=== PATIENT | female | born 1985 | race Caucasian/White ===

== ENCOUNTER 2020-02-27 18:19 | Emergency (ER) | payer MEDICAID, SELFPAY ==
[2020-02-27 18:29] VITALS: BP 174/115; PULSE 108; RESP 16; TEMP 36.7; O2SAT 97; BMI 37.1
--- NOTE | 2020-02-27 22:04 | W.ED.HA ---
HPI - Headache General: Chief Complaint: Headache Stated Complaint: dental pain/headache Time Seen by Provider: 02/27/20 22:04 Source: patient Mode of arrival: ambulatory Limitations: no limitations History of Present Illness: HPI Narrative: Patient comes in with headache for 3 to 4 days. Patient reports it is kind of went to the left side of her face now. Patient reports that she has been using ibuprofen with some relief. Patient appears well. Patient appears in no pain. Review of Systems General: Reports: 10 or more systems reviewed and unremarkable except in HPI and below ENMT: Reports: mouth pain Neuro: Reports: headache(s) [facility] ED Female Reproductive History: Date of last menstrual period: 02/10/20 Physical Exam Const: COMMON NORMALS: no acute distress and patient oriented x3 GENERAL APPEARANCE: cooperative HENMT: COMMON NORMALS: normocephalic, TM's normal bilaterally and Normal external nose present HEAD & SCALP: normal to inspection and normocephalic NOSE: Normal external nose present TYMPANIC MEMBRANE: TM's normal bilaterally MOUTH: other (Patient has erythema and swelling to the left lower rear molar that is decayed to the gumline.) THROAT: posterior oropharynx normal Eye: GENERAL EYE: appearance normal, both eyes and all related structures Neck/C-Spine: COMMON NORMALS: full ROM Lymph: LYMPHATIC: no lymphadenopathy noted Chest: COMMONS NORMALS: normal inspection of the chest Resp: COMMON NORMALS: normal respiratory effort EFFORT & INSPECTION: Yes able to speak in complete sentences Cardio: COMMON NORMALS: regular rate and regular rhythm RATE: regular rate RHYTHM: regular rhythm GI: COMMON NORMALS: non-tender Back/Pelvis: COMMON NORMALS: thoracic and lumbar spine normal to inspection Extremity: COMMON NORMALS: normal to inspection Neuro: COMMON NORMALS: patient oriented x3 and moves all extremities Psych: COMMON NORMALS: mental status grossly normal and cooperative Skin: COMMON NORMALS: no rashes or lesions noted GENERAL SKIN EXAM: no rashes or lesions noted Course Vital Signs: Vital signs: Vital Signs Temperature 98.1 F 02/27/20 18:29 Pulse Rate 108 H 02/27/20 18:29 Respiratory Rate 16 02/27/20 18:29 Blood Pressure 174/115 02/27/20 18:29 Pulse Oximetry 97 02/27/20 18:29 MDM - Headache MDM Narrative: Medical decision making narrative: Patient comes in with persistent headache for 3 days. On exam patient has some mild swelling and tenderness to the left TMJ joint area and left anterior cervical lymph node. Oral exam noted a decayed left lower rear molar with surrounding gingival redness and swelling. Vital signs were normal except for some elevation in blood pressure. No fevers noted. Differential diagnosis includes but not limited to migraine headache, tension headache, sinusitis, dental abscess, dental caries, otitis media. Reviewed exam with patient recommended treatment for a dental abscess. Patient reported understanding and agreed to plan. Patient will continue with Tylenol and ibuprofen otherwise as needed for pain. Discharge Plan Discharge Patient Disposition: Home, Self-Care Clinical Impression: Pain due to dental caries, Abscess, dental Condition: Stable Prescriptions: New amoxicillin 500 mg capsule 1,000 mg PO BID 10 Days Qty: 40 RF: 0 Discharge Orders: Discharge Order (Routine); Ordered 02/27/20 Ordered By: Ellis Chirinos Discharge Diet: Usual diet Discharge Activity: Increase activity as tolerated Patient Instructions: Dental Caries (ED) Activity Restrictions/Additional Instructions: Good oral care. Drink plenty of water with medication. Continue with Tylenol and ibuprofen as needed for pain. Follow-up with dentist for definitive care. Return to the ER for worsening symptoms or new concerns. 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
[2020-02-27] MEDS: amoxicillin 500 mg Capsule 1000 MG PO (23:02)
[2020-02-27 23:05] VITALS: BP 124/74; PULSE 98; RESP 18; TEMP 37.1; O2SAT 98
== END 2020-02-27 23:06 | disposition home or self-care (01) ==
PROVIDERS: Emergency Provider Nurse Practitioner Family
DX: K02.9 Dental caries, unspecified (principal); K04.7 Periapical abscess without sinus
CPT/HCPCS: 12345; 99281; 99282

== ENCOUNTER 2020-03-12 08:12 | Emergency (ER) | payer MEDICAID, SELFPAY ==
[2020-03-12 08:16] VITALS: BP 168/127; PULSE 102; RESP 18; TEMP 36.5; O2SAT 100; BMI 37.1
--- NOTE | 2020-03-12 08:23 | ED_ITS ---
HPI - Ear Problem General: Chief complaint: Ear Stated complaint: r ear pain Time Seen by Provider: 03/12/20 08:16 History of Present Illness: HPI Narrative: Patient complains of right ear pain since yesterday and recently treated for dental infection but that was on the left side versus right. Also has a history hypertension which she is not taking her medication for this morning. MD Complaint: ear pain Location: right ear Duration: constant Severity: mild Relieving factors: nothing Exacerbating factors: nothing Context: other (Dental infection on the other side) Discharge from ear: no Associated symptoms: Reports no associated symptoms and ear or mastoid pain; Denies fever(s) or headache(s) Treatment prior to arrival: none Review of Systems Const: Denies: fever(s), chills or body aches Eyes: Denies: change in vision or blurry vision ENMT: Reports: ear or mastoid pain; Denies: throat pain or nasal congestion Card: Denies: chest pain or dyspnea on exertion Resp: Denies: dyspnea, productive cough or non-productive cough GI: Denies: abdominal pain, nausea or vomiting Musc: Denies: extremity pain Skin/Breast: Denies: rash Neuro: Denies: headache(s) Psych: Denies: anxiety or depression Claude/Lymph: Denies: easy bruising [facility] ED Female Reproductive History: Date of last menstrual period: 02/15/20 Physical Exam Const: COMMON NORMALS: no acute distress, average body habitus and patient oriented x3 HENMT: COMMON NORMALS: normocephalic HEAD & SCALP: normal to inspection and normocephalic FACE & SINUS: normal facial exam TYMPANIC MEMBRANE: TM abnormal TM laterality: right Details: dull, effusion and other (Mild lymphadenopathy anterior cervical right side) Eye: COMMON NORMALS: conjunctivae normal GENERAL EYE: appearance normal, both eyes and all related structures CONJUNCTIVA: Yes conjunctivae normal Neck/C-Spine: COMMON NORMALS: no JVD Chest: COMMONS NORMALS: normal inspection of the chest Resp: COMMON NORMALS: normal respiratory effort and clear to auscultation bilaterally AUSCULTATION: clear to auscultation bilaterally Cardio: COMMON NORMALS: no JVD, regular rate and regular rhythm RATE: regular rate RHYTHM: regular rhythm GI: COMMON NORMALS: Normal to inspection, nondistended, normoactive bowel sounds present Extremity: COMMON NORMALS: normal to inspection and full ROM Neuro: COMMON NORMALS: patient oriented x3 Course Vital Signs: Vital signs: Vital Signs Temperature 97.7 F 03/12/20 08:29 Pulse Rate 102 H 03/12/20 08:29 Respiratory Rate 18 03/12/20 08:29 Blood Pressure 168/100 03/12/20 08:29 Pulse Oximetry 100 03/12/20 08:29 Discharge Plan Discharge Patient Disposition: Home, Self-Care Clinical Impression: Otitis media Qualifiers: Otitis media type: serous Chronicity: acute Laterality: right Recurrence: non- recurrent Qualified Code(s): H65.01 - Acute serous otitis media, right ear HTN (hypertension) Qualifiers: Hypertension type: essential hypertension Qualified Code(s): I10 - Essential (primary) hypertension Condition: Stable Prescriptions: New ciprofloxacin HCl 500 mg tablet 500 mg PO BID Qty: 14 RF: 0 tramadol 50 mg tablet 50 mg PO Q6H PRN (Reason: pain) Qty: 7 RF: 0 Discharge Orders: Discharge Order (Routine); Ordered 03/12/20 Ordered By: Aurelio Beckwith Discharge Diet: Usual diet Discharge Activity: Resume usual activity Patient Instructions: Otitis Media (ED), Hypertension (ED) Activity Restrictions/Additional Instructions: Follow-up with medical provider as directed. Take medications as prescribed. Return to the ER or your medical provider if condition worsens. Please read and understand discharge instructions. If any questions ask please. 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
[2020-03-12 08:29] VITALS: BP 168/100; PULSE 102; RESP 18; TEMP 36.5; O2SAT 100
== END 2020-03-12 08:31 | disposition home or self-care (01) ==
LOC: ER 08:32
PROVIDERS: Emergency Provider Nurse Practitioner Family
DX: H65.01 Acute serous otitis media, right ear (principal); I10 Essential (primary) hypertension
CPT/HCPCS: 12345; 99281; 99282

== ENCOUNTER 2021-02-14 20:00 | Emergency (ER) | payer MEDICAID, SELFPAY ==
[2021-02-14 20:05] VITALS: BP 142/86; PULSE 90; RESP 16; TEMP 36.6; O2SAT 96; BMI 34.7
--- NOTE | 2021-02-14 20:11 | W.ED.DENTAL ---
HPI - Dental/Oral General: Chief complaint: Dental/Oral Stated complaint: oral abcess Time Seen by Provider: 02/14/21 20:10 History of Present Illness: HPI Narrative: Patient is a 35-year-old female comes to the ED with dental pain and gum swelling. Patient says she noticed approximately 2 to 3 days ago she started developing some around tooth #25 and 26. She also noticed that she was having some dental pain at tooth #25 and 26 as well. Patient says she does have a dentist currently and is going to call them tomorrow morning to get an appointment set up. Patient has no other complaints. Associated symptoms: Denies fever(s) or odynophagia Review of Systems Const: Denies: fever(s), chills or fatigue Eyes: Denies: change in vision or eye discomfort ENMT: Reports: dental pain; Denies: throat pain, odynophagia, nasal discharge or nasal congestion Card: Denies: chest pain, palpitations, edema, swelling of feet/ankles, dyspnea on exertion or orthopnea Resp: Denies: dyspnea, productive cough or non-productive cough GI: Denies: abdominal pain, nausea, vomiting, diarrhea, constipation or hematochezia : Denies: flank pain, dysuria or hematuria Musc: Denies: neck pain, back pain or extremity swelling Skin/Breast: Denies: rash or new lesions Neuro: Denies: headache(s), numbness in extremities or weakness in extremities [facility] ED Female Reproductive History: Date of last menstrual period: 02/13/21 Physical Exam Narrative: EXAM NARRATIVE: Patient is a very happy and pleasant 35-year-old female in no acute distress or pain. Const: COMMON NORMALS: no acute distress, patient oriented x3, healthy appearing and alert GENERAL APPEARANCE: cooperative and comfortable HENMT: COMMON NORMALS: normocephalic HEAD & SCALP: normocephalic MOUTH: Normal oral and palatal mucosa present TEETH & GINGIVA: Yes abnormal tooth and associated gingiva lower right central incisor tender (Tenderness to tooth #25 and #26 and gingival tenderness) and with associated gingival edema and Yes fair dentition THROAT: posterior oropharynx normal and uvula midline Neck/C-Spine: COMMON NORMALS: supple GENERAL: Yes normal visual inspection Resp: COMMON NORMALS: normal respiratory effort, No retractions, No use of accessory muscles and clear to auscultation bilaterally AUSCULTATION: clear to auscultation bilaterally Cardio: COMMON NORMALS: regular rate, regular rhythm, S1 normal heart sound present, S2 normal heart sound present, No gallops present (Cardio), No clicks present (Cardio), No murmurs present (Cardio) and Peripheral pulses 2+ throughout RATE: regular rate RHYTHM: regular rhythm HEART SOUNDS: S1 normal heart sound present and S2 normal heart sound present PERIPHERAL PULSES: Peripheral pulses 2+ throughout GI: COMMON NORMALS: Normal to inspection, nondistended, normoactive bowel sounds present, Soft to palpation, non-tender and no masses PALPATION: Yes Soft to palpation : COMMON NORMALS: Yes no CVA tenderness BLADDER/KIDNEY EXAM: Yes no CVA tenderness Back/Pelvis: COMMON NORMALS: no CVA tenderness Extremity: COMMON NORMALS: normal to inspection Neuro: COMMON NORMALS: patient oriented x3 and moves all extremities SENSORIUM/ORIENTATION: Yes alert Skin: GENERAL SKIN EXAM: dry skin Course Vital Signs: Vital signs: Vital Signs Temperature 97.9 F 02/14/21 20:05 Pulse Rate 90 02/14/21 20:05 Respiratory Rate 16 02/14/21 20:27 Blood Pressure 142/86 02/14/21 20:05 Pulse Oximetry 96 02/14/21 20:05 MDM - Dental/Oral MDM Narrative: Medical decision making narrative: Patient is a 35-year-old female comes to the ED with some dental pain and gingival swelling. Patient says she has a dentist and is going to call them tomorrow morning to get an appointment set up. Patient was given a dose of Tylenol while here in the ED and clindamycin. Patient diagnosed with dental pain and swelling of gingiva discharged home with a prescription for clindamycin. Patient was told to get an appointment set up with dentist to be evaluated for dental pain. Return to ED precautions given. Patient understood agree with plan. Discharge Plan Discharge Patient Disposition: Home Clinical Impression: Pain, dental, Swelling of gingiva Condition: Stable Prescriptions: New clindamycin HCl 150 mg capsule 300 mg PO QID 7 Days Qty: 56 RF: 0 No Action ciprofloxacin HCl 500 mg tablet 500 mg PO BID Qty: 14 RF: 0 tramadol 50 mg tablet 50 mg PO Q6H PRN (Reason: pain) Qty: 7 RF: 0 Discharge Orders: Discharge ED (Routine); Ordered 02/14/21 Ordered By: Riaz Renee Discharge Diet: Regular Discharge Activity: Resume usual activity Patient Instructions: Dental Abscess (ED), Toothache (ED) Activity Restrictions/Additional Instructions: Contact your dentist tomorrow morning to get an appointment scheduled to get dental pain evaluated. Take medications as prescribed. You can take [id number] ibuprofen or Tylenol for pain. Return to the ER or your medical provider if condition worsens. Please read and understand discharge instructions. Thank you for choosing [facility] for your healthcare needs today. Please realize this is an emergency room and that we are providing you with a medical screening exam and this may not be complete and all inclusive of all the testing and or work up that you may need to determine your ailment or severity of your illness. It is very important that you follow up as instructed or that you return to the Emergency Department should you have concerns or if your condition changes or worsens in any way. 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
[2021-02-14] MEDS: acetaminophen 500 mg Tablet 1000 MG PO (20:25)
[2021-02-14] MEDS: clindamycin 150 mg Capsule 300 MG PO (20:25)
[2021-02-14 20:27] VITALS: RESP 16
== END 2021-02-14 20:28 | disposition home or self-care (01) ==
PROVIDERS: Emergency Provider Physician Assistant
DX: K08.89 Other specified disorders of teeth and supporting structures (principal); K06.9 Disorder of gingiva and edentulous alveolar ridge, unspecified
CPT/HCPCS: 99283

== ENCOUNTER 2021-03-07 10:24 | Emergency (ER) | payer MEDICAID, SELFPAY ==
[2021-03-07 10:31] VITALS: BP 150/104; PULSE 86; RESP 16; TEMP 37.6; O2SAT 97; BMI 35.5
--- NOTE | 2021-03-07 10:40 | XRR_ITS ---
PROCEDURE INFORMATION: Exam: XR Chest Exam date and time: 03/07/2021 10:40 AM Age: 35 years old Clinical indication: Shortness of breath; Additional info: SOB TECHNIQUE: Imaging protocol: XR of the chest. Views: 1 view. COMPARISON: CR Chest 1 [place] [id number] 06/04/2019 2:19 AM FINDINGS: Lungs: Unremarkable. No consolidation. Pleural spaces: Unremarkable. No pleural effusion. No pneumothorax. Heart/Mediastinum: Unremarkable. No cardiomegaly. Bones/joints: Unremarkable. XR/XR chest 1V portable [id number] IMPRESSION: No acute findings.
[2021-03-07 11:17] LABS: SARS Covid-2 Antigen Positive (Negative)
[2021-03-07 13:16] VITALS: O2SAT 95
--- NOTE | 2021-03-07 13:23 | ED_ITS ---
HPI - COVID General: Chief Complaint: COVID symptoms Stated Complaint: FEVER, BODY ACHES, N/D Time Seen by Provider: 03/07/21 10:32 Source: patient Mode of arrival: ambulatory Limitations: no limitations Triage information: Has fever, cough or shortness of breath . Exposure to COVID + person last 14 days History of Present Illness: MD complaint: reported COVID exposure and has COVID symptoms Prior covid testing: no COVID 19 common symptoms: positive fever(s), cough, dyspnea and headache(s); negative throat pain, nasal congestion, nausea, vomiting or diarrhea COVID 19 other sytmptoms: negative chest pain Treatment prior to arrival: none COVID Results: SARS-CoV-2 Antigen (Rapid) Positive (Negative) H 03/07/21 10:37 03/07/21 Review of Systems Const: Reports: fever(s) Eyes: Denies: change in vision, blurry vision, blind spots, photophobia, eye discomfort, eye discharge, eye redness, floaters or seeing flashes ENMT: Denies: throat pain, uvular edema, enlarged tonsils, odynophagia, hoarseness, mouth pain, swelling of lips/tongue, oral sores, bleeding gums, dental pain, dry mouth, ear or mastoid pain, ear discharge, change in hearing, tinnitus, disequilibrium, nasal discharge, nasal congestion, post nasal drip or sinus pain Card: Denies: chest pain Resp: Reports: dyspnea GI: Denies: abdominal pain, nausea, vomiting, hematemesis, dysphagia, di arrhea, constipation, GI cramping, change in bowel habits or rectal pain : Denies: flank pain, difficulty voiding, dysuria, urinary frequency, urinary urgency, urinary hesitancy or hematuria Musc: Denies: neck pain, back pain, extremity pain, extremity swelling, joint pain, joint swelling, joint redness, joint warmth or deformity Skin/Breast: Denies: rash, pruritus, erythema, sores, new lesions, changes in skin color or dry skin Neuro: Reports: headache(s) Psych: Denies: anxiety, depression, suicidal ideation or homicidal ideation Endo: Denies: polyuria, polydipsia, tired all the time, cold intolerance, excessive sweating, flushing, hot flashes or heat intolerance Claude/Lymph: Denies: easy bruising, easy bleeding, petechiae, purpura, enlarged lymph nodes or tender lymph nodes All/Imm: Denies: urticaria, throat swelling, tongue swelling, facial swelling, acute wheezing or itchy eyes [facility] ED Female Reproductive History: Date of last menstrual period: 02/13/21 Physical Exam Const: COMMON NORMALS: no acute distress, patient oriented x3, healthy appearing, alert and well nourished GENERAL APPEARANCE: cooperative, comfortable, well kempt and well developed; not ill appearing ORIENTATION/CONSCIOUSNESS: Yes awake, Yes oriented to person, Yes oriented to place and Yes oriented to time HENMT: COMMON NORMALS: normocephalic, atraumatic, hearing grossly normal bilaterally, external ears normal, EAC's normal, TM's normal bilaterally, Normal external nose present, Normal nasal mucous membranes and turbinates present and moist oral mucous membranes HEAD & SCALP: normal to inspection, normocephalic and atraumatic FACE & SINUS: normal facial exam, sinuses nontender and face symmetric NOSE: Normal external nose present, Normal nares present, Normal nasal mucous membranes and turbinates present, No nasal discharge present and Abnormal external nose present EXTERNAL EAR: Yes external ears normal and Yes mastoids normal EXTERNAL AUDITORY CANAL: EAC's normal TYMPANIC MEMBRANE: TM's normal bilaterally MOUTH: Normal oral and palatal mucosa present, lip normal, tongue normal and Normal salivary glands and ducts present THROAT: no uvular edema Eye: COMMON NORMALS: Equal, round and reactive pupils present, EOMs intact bilaterally, conjunctivae normal and no scleral icterus GENERAL EYE: appearance normal, both eyes and all related structures EYELID: eyelids normal CONJUNCTIVA: Yes conjunctivae normal SCLERA: sclerae normal CORNEA: Yes corneas normal PUPIL: Yes Equal, round and reactive pupils present Neck/C-Spine: COMMON NORMALS: full ROM, no lymphadenopathy, supple, no meningeal signs, no JVD and Thyroid normal GENERAL: Yes normal visual inspection and Yes trachea midline THYROID: Thyroid normal CERVICAL SPINE: Yes cervical ROM normal Lymph: LYMPHATIC: no lymphadenopathy noted and no lymphedema noted Chest: COMMONS NORMALS: normal inspection of the chest and normal palpation of entire chest wall Resp: COMMON NORMALS: normal respiratory effort, No retractions, No use of accessory muscles and clear to auscultation bilaterally EFFORT & INSPECTION: Yes able to speak in complete sentences and Yes symmetric chest movement AUSCULTATION: clear to auscultation bilaterally Cardio: COMMON NORMALS: no JVD, regular rate and regular rhythm RATE: regular rate RHYTHM: regular rhythm GI: COMMON NORMALS: Normal to inspection, nondistended, normoactive bowel sounds present, Soft to palpation, non-tender, No hepatosplenomegaly present, no masses and no bruits INSPECTION: Yes normal to inspection AUSCULTATION: Yes normoactive bowel sounds PALPATION: Yes Soft to palpation and Yes No hepatosplenomegaly present PERCUSSION: normal to percussion RECTAL EXAM: deferred : COMMON NORMALS: Yes no CVA tenderness, Yes normal external appearance, Yes normal appearance of the vagina, Yes normal appearance of the cervix, Yes normal bimanual exam, Yes No adnexal tenderness and Yes no masses BLADDER/KIDNEY EXAM: Yes no CVA tenderness BIMANUAL EXAM - VAGINA & UTERUS: Yes normal bimanual exam Back/Pelvis: COMMON NORMALS: no CVA tenderness, thoracic and lumbar spine normal to inspection, no thoracic nor lumbar tenderness, thoraco-lumbar ROM normal and straight leg raise negative bilaterally THORACIC SPINE/UPPER BACK: Yes normal to inspection LUMBAR SPINE/LOWER BACK: Yes normal to inspection Extremity: COMMON NORMALS: normal to inspection, full ROM and capillary refill normal GENERAL: Yes normal exam except as noted Neuro: COMMON NORMALS: patient oriented x3, CN's II-XII intact bilaterally, moves all extremities, no focal motor deficits, no sensory deficits noted, deep tendon reflexes 2+ bilaterally and gait normal SENSORIUM/ORIENTATION: Yes alert, Yes oriented to person, Yes oriented to place and Yes oriented to time MENINGEAL SIGNS: Yes no meningeal signs CRANIAL NERVES: Yes CN normal except as noted SPEECH: speech normal GAIT: Yes Normal gait present SENSORY EXAM: Yes extremities MOTOR EXAM: 5/5 motor strength present throughout Psych: COMMON NORMALS: mental status grossly normal, Normal thought process present, cooperative, normal affect, speech normal, activity/motor behavior normal, denies hallucinations, denies homicidal ideation and denies suicidal ideation APPEARANCE: Yes grossly normal and Yes well kempt ATTITUDE: Yes calm ACTIVITY/MOTOR BEHAVIOR: Yes appropriate eye contact SPEECH: Yes normal speech THOUGHT PROCESS: Normal thought process present THOUGHT CONTENT: Yes Normal thought content present ATTENTION/CONCENTRATION: Yes attention grossly intact MEMORY/COGNITION: Yes memory grossly intact INSIGHT: Good insight present (Psych) JUDGEMENT: Good judgement present (Psych) Skin: COMMON NORMALS: no rashes or lesions noted, no wounds, turgor normal, no jaundice, no petechiae and no mottling GENERAL SKIN EXAM: no rashes or lesions noted and turgor normal Course Vital Signs: Vital signs: Vital Signs Temperature 99.7 F H 03/07/21 10:31 Pulse Rate 86 03/07/21 10:31 Respiratory Rate 16 03/07/21 10:31 Blood Pressure 150/104 03/07/21 10:31 Pulse Oximetry 95 03/07/21 13:16 MDM - COVID MDM Narrative: Medical decision making narrative: Pt is well appearing non toxic and in no acute distress. Pt had known Covid exposure and developed symptoms 3-4 days ago. Pt states she has cough and fever and headache. pt denies chest pain, sever SOB, states she SOB with cough. Pt denies any n/v/d. Pt did test positive for COVID. Pt chest xray negative for any acute findings. I discussed home care and return precautions with patient as wellas close follow up Differential Diagnosis: Differential diagnosis: Likely COVID 19, influenza, other viral infection, bacterial infection, pneumonia, copd exacerbation and pulmonary embolism Lab Data: Labs: Lab Results 03/07/21 Range/Units 10:37 SARS-CoV-2 Ag (Rap id) Positive H (Negative) COVID Results: SARS-CoV-2 Antigen (Rapid) Positive (Negative) H 03/07/21 10:37 03/07/21 Discharge Plan Discharge Patient Disposition: Home Clinical Impression: COVID-19 Condition: Stable Prescriptions: No Action ciprofloxacin HCl 500 mg tablet 500 mg PO BID Qty: 14 RF: 0 tramadol 50 mg tablet 50 mg PO Q6H PRN (Reason: pain) Qty: 7 RF: 0 Discharge Orders: Discharge ED (Routine); Ordered 03/07/21 Ordered By: Marina Rocha Discharge Diet: Advance as tolerated Discharge Activity: Increase activity as tolerated Patient Instructions: Opioid Safety Activity Restrictions/Additional Instructions: Please self quarantine for 10 days. 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
== END 2021-03-07 13:23 | disposition home or self-care (01) ==
PROVIDERS: Emergency Provider Registered Nurse
DX: U07.1 COVID-19 (principal)
CPT/HCPCS: 71045; 87426; 99282

== ENCOUNTER 2021-04-27 07:35 | Emergency (ER) | payer MEDICAID, SELFPAY ==
[2021-04-27 07:51] VITALS: BP 160/117; PULSE 89; RESP 16; TEMP 36.8; O2SAT 96; BMI 37.1
--- NOTE | 2021-04-27 08:02 | XRR_ITS ---
PROCEDURE INFORMATION: Exam: XR Chest Exam date and time: 04/27/2021 8:02 AM Age: 36 years old Clinical indication: Cough and dyspnea and shortness of breath; Additional info: Dyspnea/cough x 1 week TECHNIQUE: Imaging protocol: XR of the chest. Views: 1 view. COMPARISON: CR XR chest 1V portable [id number] 03/07/2021 10:55 AM FINDINGS: Lungs: Hyperinflation and mild interstitial prominence. No acute infiltrate. Pleural spaces: No pleural effusion. Heart/Mediastinum: Normal configuration of the heart. Bones/joints: Unremarkable. When correlating with the previous study, no significant interval changes are present. XR/XR chest 1V portable [id number] IMPRESSION: Hyperinflation, without acute airspace or pleural disease.
[2021-04-27 08:04] VITALS: BP 162/101; PULSE 86
--- NOTE | 2021-04-27 08:15 | ED_ITS ---
HPI - URI/Sore Throat General: Chief Complaint: Upper Respiratory Infection Stated Complaint: SOB, COUGH (EXPOSURE TO RSV) Time Seen by Provider: 04/27/21 07:38 History of Present Illness: HPI Narrative: 36-year-old female presents emergency room for cough that began 1 week ago. She does have some low-grade fever. She is concerned she may have a pneumonia. Last month she was diagnosed with Covid she seemed to have recovered from that. She is also concerned that she was exposed to RSV. She not had any vomiting or diarrhea. No dysuria urgency or frequency. MD elicited complaint: fever and cough Pertinent past history: pneumonia and other (Recent Covid 19) Onset (ago): week(s) (1) Consistency: constant Severity: mild Exacerbating factors: exertion Relieving factors: nothing Associated symptoms: Reports congestion and cough; Deny abdominal pain, change in voice, chills, chest pain, diarrhea, epistaxis, ear or mastoid pain, fever(s), headache(s), myalgias, nasal congestion, nausea, rash, rhinorrhea, short of breath, sinus pain, stiffness, sore throat or vomiting Treatments prior to arrival: none Review of Systems Const: Denies: fever(s) or chills ENMT: Denies: ear or mastoid pain, nasal congestion, epistaxis or sinus pain Card: Denies: chest pain Resp: Denies: dyspnea, productive cough or non-productive cough GI: Denies: abdominal pain, nausea, vomiting or diarrhea : Denies: flank pain, difficulty voiding, dysuria, urinary frequency or urinary urgency Skin/Breast: Denies: rash or pruritus Neuro: Denies: headache(s) [facility] ED Female Reproductive History: Date of last menstrual period: 04/10/21 Physical Exam Const: COMMON NORMALS: no acute distress GENERAL APPEARANCE: cooperative and comfortable ORIENTATION/CONSCIOUSNESS: Yes awake, Yes oriented to person, Yes oriented to place and Yes oriented to time HENMT: COMMON NORMALS: normocephalic, atraumatic and hearing grossly normal bilaterally HEAD & SCALP: normocephalic and atraumatic Neck/C-Spine: COMMON NORMALS: no JVD Resp: AUSCULTATION: rhonchi and wheezes Cardio: COMMON NORMALS: no JVD, regular rate, regular rhythm and No murmurs present (Cardio) RATE: regular rate RHYTHM: regular rhythm GI: COMMON NORMALS: Soft to palpation and No hepatosplenomegaly present AUSCULTATION: Yes normoactive bowel sounds PALPATION: Yes Soft to palpation, No Tenderness to palpation present (GI), No Guarding due to palpation present (GI) and Yes No hepatosplenomegaly present Extremity: COMMON NORMALS: normal to inspection, capillary refill normal, no clubbing, cyanosis or edema, no calf tenderness and no pedal edema Neuro: SENSORIUM/ORIENTATION: Yes oriented to person, Yes oriented to place and Yes oriented to time Skin: COMMON NORMALS: no rashes or lesions noted GENERAL SKIN EXAM: no rashes or lesions noted Course Vital Signs: Vital signs: Vital Signs Temperature 98.3 F 04/27/21 07:51 Pulse Rate 79 04/27/21 09:22 Respiratory Rate 17 04/27/21 09:22 Blood Pressure 162/101 04/27/21 08:04 Pulse Oximetry 97 04/27/21 09:22 MDM - URI/Sore Throat MDM Narrative: Medical decision making narrative: Chest x-ray normal. Patient was concerned about RSV unfortunately in an adult this is a send out via a reference lab it will be a few days. Oxygenation is good there is no sign of pneumonia will start on prednisone and albuterol inhaler she did have good results from [facility] here. If worsens return Lab Data: Labs: Lab Results 04/27/21 04/27/21 Range/Units 08:25 08:25 WBC 8.6 (4.0-10.0) 10^3/ uL RBC 4.88 (4.1-5.3) 10^6/u L Hgb 12.8 (11.5-15.3) g/dL Hct 39.1 (37.0-47.0) % MCV 80.1 L (81-99) fl MCH 26.2 L (28.0-34.0) pg MCHC 32.7 (30.0-36.0) g/dL RDW 13.9 (12.1-15.1) % Plt Count 245 (130-400) 10^3/c mm MPV 9.7 (7.4-10.4) fL Neut % (Auto) 68.1 % Lymph % (Auto) 18.9 % [place] % (Auto) 7.4 % Eos % (Auto) 4.1 % Baso % (Auto) 0.7 % Neut # (Auto) 5.84 (1.8-7.7) 10^3/u L Lymph # (Auto) 1.6 (0.8-4.8) 10^3/u L [place] # (Auto) 0.6 (0.2-0.9) 10^3/u L Eos # (Auto) 0.4 (0.0-0.8) 10^3/u L Baso # (Auto) 0.1 (0.0-0.1) 10^3/u L Nucleated RBC % (a uto) 0 % Nucleated RBCs # 0.0 /100WBC Sodium 135 L (136-145) mmol/L Potassium 3.5 (3.5-5.1) mmol/L Chloride 97 L (98-107) mmol/L Carbon Dioxide 28 (22-29) mmol/L Anion Gap 13.5 (5-19) BUN 10 (6-20) mg/dL Creatinine 0.5 (0.5-0.9) mg/dL GFR Calculation 141.2 H (90-130) mL/min Glucose 146 H (65-115) mg/dL Calculated Osmolal ity 282 L (285-295) mOsm/k g Calcium 8.5 (8.5-10.5) mg/dL Total Bilirubin 0.2 (0.15-1.2) mg/dL AST 15 (0-32) U/L ALT 18 (0-33) U/L Alkaline Phosphata se 69 (35-105) IU/L Total Protein 6.7 (6.6-8.7) g/dL Albumin 3.7 (3.5-5.2) g/dL Globulin 3.0 (1.3-4.6) g/dL Discharge Plan Discharge Patient Disposition: Home Clinical Impression: Bronchitis Condition: Stable Prescriptions: New Medrol (Mauro) 4 mg tablets,dose pack See Rx Instructions .ROUTE .COMPLEX Qty: 21 RF: 0 albuterol sulfate 90 mcg/actuation HFA aerosol inhaler 2 inh INHALATION Q4H PRN (Reason: shortness of breath or wheezing) Qty: 18 RF: 0 No Action ciprofloxacin HCl 500 mg tablet 500 mg PO BID Qty: 14 RF: 0 tramadol 50 mg tablet 50 mg PO Q6H PRN (Reason: pain) Qty: 7 RF: 0 Discharge Orders: Discharge ED (Routine); Ordered 04/27/21 Ordered By: Gne Snyder Patient Instructions: Opioid Safety Stand Alone Forms: Work/School Release Coding Level of Care Code ED Operator Vacuum for Mykel Fwd Exam Comprehensive
[2021-04-27 08:36] LABS: Basophils # 0.1 10^3/uL (0.0-0.1); Basophils % 0.7 %; Eosinophils # 0.4 10^3/uL (0.0-0.8); Eosinophils % 4.1 %; Hematocrit 39.1 % (37.0-47.0); Hemoglobin 12.8 g/dL (11.5-15.3); Lymphocytes # 1.6 10^3/uL (0.8-4.8); Lymphocytes % 18.9 %; Mean Corpuscular HGB Conc 32.7 g/dL (30.0-36.0); Mean Corpuscular Hemoglobin 26.2 pg (28.0-34.0); Mean Corpuscular Volume 80.1 fl (81-99); Mean Platelet Volume 9.7 fL (7.4-10.4); Monocytes # 0.6 10^3/uL (0.2-0.9); Monocytes % 7.4 %; Neutrophils # 5.84 10^3/uL (1.8-7.7); Neutrophils % 68.1 %; Nucleated Red Blood Cells % 0 %; Platelet Count 245 10^3/cmm (130-400); Red Blood Count 4.88 10^6/uL (4.1-5.3); Red Cell Distribution Width 13.9 % (12.1-15.1); White Blood Count 8.6 10^3/uL (4.0-10.0)
[2021-04-27 08:49] LABS: Alanine Aminotransferase 18 U/L (0-33); Albumin Level 3.7 g/dL (3.5-5.2); Alkaline Phosphatase 69 IU/L (35-105); Anion Gap 13.5 (5-19); Aspartate Amino Transferase 15 U/L (0-32); Blood Urea Nitrogen 10 mg/dL (6-20); Calcium 8.5 mg/dL (8.5-10.5); Carbon Dioxide 28 mmol/L (22-29); Chloride 97 mmol/L (98-107); Glomerular Filtration Rate 141.2 mL/min (90-130); Glucose 146 mg/dL (65-115); Osmolality Calculated 282 mOsm/kg (285-295); Potassium 3.5 mmol/L (3.5-5.1); Sodium 135 mmol/L (136-145); Total Bilirubin 0.2 mg/dL (0.15-1.2); Total Protein 6.7 g/dL (6.6-8.7)
[2021-04-27 09:22] VITALS: PULSE 79; RESP 17; O2SAT 97
--- NOTE | 2021-04-27 09:23 | PC.RESP ---
RT Shift Note Frequent safety and respiratory rounds continue. Orders completed as indicated. Patient monitored pre and post treatments throughout shift. Patient [Did.] tolerate treatments appropriately. Condition [DidNotChange]. Patient and/or customer loyalty representative educated on respiratory treatment and medications. Patient and/or customer loyalty representative [VERBALIZED UNDERSTANDING]. Will continue to monitor patient progress.
== END 2021-04-27 10:09 | disposition home or self-care (01) ==
PROVIDERS: Emergency Provider Family Medicine
DX: J40 Bronchitis, not specified as acute or chronic (principal); Z86.16 Personal history of COVID-19
CPT/HCPCS: 71045; 80053; 85025; 94640; 96374; 99283; J2930; J7611

== ENCOUNTER 2021-06-21 10:45 | Emergency (ER) | payer MEDICAID, SELFPAY ==
[2021-06-21] VITALS (7 sets, daily range): BP systolic 114–134; BP diastolic 76–91; PULSE 73–100; RESP 14–20; TEMP 36.6–37.2; O2SAT 96–100; BMI 31.9
--- NOTE | 2021-06-21 10:52 | XR_ITS ---
WS: [id number] Exam: XR chest 1V portable [id number] Date/Time of Exam: 06/21/2021 10:52 AM Reason For Exam: chest pain Comparison 04/27/2021. Findings: The lungs are clear and fully expanded. Costophrenic angles are sharp. No infiltrates. Bronchovascula r relief appears normal. Cardiac silhouette is unremarkable. Bony elements are intact. XR/XR chest 1V portable [id number] IMPRESSION: Unremarkable chest radiograph.
--- NOTE | 2021-06-21 11:04 | ECG_ITS ---
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 Measurements Intervals [place] Rate: 78 P: 32 IL: 158 QRS: 55 QRSD: 96 T: 71 QT: 437 QTc: 498 Interpretive Statements SINUS RHYTHM PROLONGED QT INTERVAL Compared to ECG 06/07/2019 23:26:45 Prolonged QT interval now present Sinus tachycardia no longer present Electronically Signed On 06-21-2021 23:45:59 CDT by Isaías Grayson M.D. [email or web address]/[id number] f
[2021-06-21 11:20] LABS: Basophils # 0.1 10^3/uL (0.0-0.1); Basophils % 0.6 %; Eosinophils # 0.2 10^3/uL (0.0-0.8); Eosinophils % 1.6 %; Hematocrit 43.3 % (37.0-47.0); Hemoglobin 14.1 g/dL (11.5-15.3); Lymphocytes # 2.9 10^3/uL (0.8-4.8); Lymphocytes % 21.2 %; Mean Corpuscular HGB Conc 32.6 g/dL (30.0-36.0); Mean Corpuscular Hemoglobin 26.9 pg (28.0-34.0); Mean Corpuscular Volume 82.6 fl (81-99); Mean Platelet Volume 10.1 fL (7.4-10.4); Monocytes # 0.7 10^3/uL (0.2-0.9); Monocytes % 5.1 %; Neutrophils # 9.57 10^3/uL (1.8-7.7); Neutrophils % 71.3 %; Nucleated Red Blood Cells % 0 %; Platelet Count 312 10^3/cmm (130-400); Red Blood Count 5.24 10^6/uL (4.1-5.3); Red Cell Distribution Width 13.8 % (12.1-15.1); White Blood Count 13.4 10^3/uL (4.0-10.0)
[2021-06-21] MEDS: nitroglycerin 0.4 mg sublingual Tablet SUBLINGUAL (11:25)
--- NOTE | 2021-06-21 11:38 | W.ED.GENADLT ---
HPI - General Adult General: Chief complaint: Chest Pain Stated complaint: CHEST DISCOMFORT Time Seen by Provider: 06/21/21 10:50 History of Present Illness: HPI narrative: CC: Chest Pain HPI: This is a [36] yo patient hx of HTN, family hx of cardiac issue, smoking presenting to the ED complaining of acute sudden onset intermittent sharp chest pain since 5am this morning radiating from the back to the front. Chest pain lasts for 5 minutes at a time, currently 4/10 chest pain that started from the back and radiated to the front. Denies pleuritic chest pain. Pain is not tearing in nature and does not radiate to the back. Pain not associated with vomiting or PO intake. Denies any recent sympathomimetic drug use. Patient denies any cough. Denies palpitations, dysphagia, diaphoresis, radiation of pain to bilateral arms, jaw. Denies F/N/V/D. Patient denies any recent immobility, surgery, unilateral leg swelling, or prior PE. Patient denies any orthopnea. Of note, patient tells me she was diagnosed with heart failure back in 2019 has yet to establish care with Dr. Mclaughlin. Onset: 5am this morning Duration: ongoing for the last 6 hrs, intermittent Location: home Severity: mild/moderate Review of Systems Narrative: Constitutional: No fever, no chills. HEENT: No vision changes, no sore throat. CV: +chest pain, no palpitations. PULM: No cough, No dyspnea. GI: No abdominal pain, no N/V/D. : No dysuria, no frequency, no hematuria. MSKEL: No arthralgias, no edema. SKIN: No new rashes, no lesions. NEURO: No headache, no focal weakness. HEME: No easy bleeding or bruising. PSYCH: No change in mood or affect. [facility] ED Female Reproductive History: Date of last menstrual period: 05/19/21 Physical Exam Narrative: EXAM NARRATIVE: Head: Atraumatic, normocephalic Eyes: PERRL, EOMI, conjunctiva without injection ENT: Throat without erythema, lesions or exudate, MMM NECK: Supple, trachea midline, no JVD LUNGS: LCTA CV: RRR, S1,S2, no murmurs, rubs, gallops. 2+ peripheral pulses in UEs ABDOMEN: Soft, nontender, nondistended, BS x4, no rigidity, no guarding, no rebound EXTREMITY: Normal ROM, no pitting edema, no calf tenderness to palpation SKIN: No rash or erythema NEURO: Awake and alert. No focal motor deficits. PSYCH: Normal mood and affect. Course Vital Signs: Vital signs: Vital Signs Temperature 97.9 F 06/21/21 12:22 Pulse Rate 96 06/21/21 15:20 Respiratory Rate 14 06/21/21 15:20 Blood Pressure 121/88 06/21/21 15:20 Pulse Oximetry 99 06/21/21 15:20 MDM - General Adult MDM Narrative: Medical decision making narrative: [36]yo patient w/ hx of smoking and family hx of cardiac isue presenting to the ED with evaluation of new onset sharp chest pain since 5am today HDS, pulse 2+ radially bilaterally, no signs of fluid overload, AAOx3, neuro exam intact. Given History and Exam today I have no suspicion for ACS, Pneumothorax, Pneumonia, Pulmonary Embolus, Tamponade, Aortic Dissection or other emergent problems as a cause for this presentation. Workup: ECG, CXR, CBC, BMP, Troponin x 2 Interventions: Pain control Findings: ECG: No overt evidence of STEMI, hyperacute T waves, localizable STD or T wave inversions. No evidence of Brugada?s sign, delta wave, epsilon wave, significantly prolonged QTc, or malignant arrhythmia. No Q waves. Other Labs unremarkable for emergent problems. CXR: Without PTX, PNA, or widened mediastinum Last Stress Test: never Last Heart Catheterization: never [3:06pm] On reassessment, the patient is HDS, no complaints of persistent chest pain in the ED after evaluation. ECG is non-ischemic. Workup today is unremarkable. Doubt ACS/PE or other emergent causes of chest pain. CT negative for any acute finding. Troponin x2 is negative. Patient would like to see a consumer science teacher for her history of heart failure which she claims she was diagnosed with in 2019. I have given patient follow up with our director of casework services to be seen by our outpatient Jira Administrator for formal echo for evaluation of hx of heart failure. Patient aware of a call from our director of casework services to schedule for appointment(s) and verbalizes understanding of the importance of following up. Rx: Tylenol PRN pain Disposition: Discharge. Strict return precautions discussed with the patient with full understanding. Advised patient to follow up promptly with a primary care provider in 24-48 hrs if the patient has persistent symptoms. Given return instructions for any crushing/tearing chest pain, focal weakness, syncope or any new or concerning issues. Lab Data: Labs: Lab Results 06/21/21 06/21/21 06/21/21 11:10 11:10 11:10 WBC 13.4 10^3/uL H 10 ^3/uL (4.0-10.0) RBC 5.24 10^6/uL 10^6 /uL (4.1-5.3) Hgb 14.1 g/dL g/dL (11.5-15.3) Hct 43.3 % % (37.0-47.0) MCV 82.6 fl fl (81-99) MCH 26.9 pg L pg (28.0-34.0) MCHC 32.6 g/dL g/dL (30.0-36.0) RDW 13.8 % % (12.1-15.1) Plt Count 312 10^3/cmm 10^3 /cmm (130-400) MPV 10.1 fL fL (7.4-10.4) Neut % (Auto) 71.3 % % Lymph % (Auto) 21.2 % % [place] % (Auto) 5.1 % % Eos % (Auto) 1.6 % % Baso % (Auto) 0.6 % % Neut # (Auto) 9.57 10^3/uL H 10 ^3/uL (1.8-7.7) Lymph # (Auto) 2.9 10^3/uL 10^3/ uL (0.8-4.8) [place] # (Auto) 0.7 10^3/uL 10^3/ uL (0.2-0.9) Eos # (Auto) 0.2 10^3/uL 10^3/ uL (0.0-0.8) Baso # (Auto) 0.1 10^3/uL 10^3/ uL (0.0-0.1) Nucleated RBC % (a uto) 0 % % Nucleated RBCs # 0.0 /100WBC /100W BC D-Dimer Sodium 140 mmol/L mmol/L (136-145) Potassium 3.7 mmol/L mmol/L (3.5-5.1) Chloride 101 mmol/L mmol/L (98-107) Carbon Dioxide 26 mmol/L mmol/L (22-29) Anion Gap 16.7 (5-19) BUN 11 mg/dL mg/dL (6-20) Creatinine 0.5 mg/dL mg/dL (0.5-0.9) GFR Calculation 141.2 mL/min H mL /min (90-130) Glucose 84 mg/dL mg/dL (65-115) Calculated Osmolal ity 289 mOsm/kg mOsm/ kg (285-295) Calcium 9.3 mg/dL mg/dL (8.5-10.5) Total Bilirubin 0.2 mg/dL mg/dL (0.15-1.2) AST 14 U/L U/L (0-32) ALT 18 U/L U/L (0-33) Alkaline Phosphata se 71 IU/L IU/L (35-105) Troponin T Gen 5 n g/L Troponin T Baselin e 6 ng/L ng/L (0-10) NT-Pro-B Natriuret Pep 46 pg/mL pg/mL (0-125) Total Protein 7.2 g/dL g/dL (6.6-8.7) Albumin 4.2 g/dL g/dL (3.5-5.2) Globulin 3.0 g/dL g/dL (1.3-4.6) 06/21/21 06/21/21 12:02 14:17 WBC RBC Hgb Hct MCV MCH MCHC RDW Plt Count MPV Neut % (Auto) Lymph % (Auto) [place] % (Auto) Eos % (Auto) Baso % (Auto) Neut # (Auto) Lymph # (Auto) [place] # (Auto) Eos # (Auto) Baso # (Auto) Nucleated RBC % (a uto) Nucleated RBCs # D-Dimer 0.81 ug/mIFEU H u g/mIFEU (0-0.59) Sodium Potassium Chloride Carbon Dioxide Anion Gap BUN Creatinine GFR Calculation Glucose Calculated Osmolal ity Calcium Total Bilirubin AST ALT Alkaline Phosphata se Troponin T Gen 5 n g/L 6 ng/L ng/L (0-10) Troponin T Baselin e NT-Pro-B Natriuret Pep Total Protein Albumin Globulin Imaging Data^: Other Imaging: Radiologist's impression: [address], [place] [address]MU Scan ReportSigned Patient: Charisse Tucker #: [id number]: 1985Acct#:[id number]/Sex: 36 / FADM Date: 06/21/21Loc: ERRoom/Bed:Attending Dr: Ordering Provider/Ordering MD: Jim Collins MD Date of Service: 06/21/21 Procedure(s): CT angio chest PE protcl [id number] Accession Number(s): [id number] Report Number: [id number] WS: [id number] CT CHEST ANGIOGRAPHY WITH REFORMATS HISTORY: rule out pe TECHNIQUE: Contiguous axial images are obtained through the chest during arterial injection of intravenous contrast. Images are reconstructed to evaluate the pulmonary arteries. MIP imaging also reviewed. All CT scans at [facility] use at least one of these dose optimization techniques: automated exposure control; mA and/or kV adjustment per patient size (includes targeted exams where dose is matched to clinical indication); or iterative reconstruction. CONTRAST: Omnipaque 350; 95 mL IV. DLP: 598.85 mGy.cm COMPARISON: None available. Motion artifact through portions of the main pulmonary artery. No large filling defects are evident. Distal to the lobar branches is very good opacification. The variable density within the main pulmonary artery is probably cardiac motion. No filling defect in the LEFT atrial appendage. Normal size heart. Normal aorta. No pericardial or pleural effusions. No pneumonia. Lungs are clear. No adenopathy. Small hiatal hernia. Visualized upper abdominal structures are normal. Mild scoliosis thoracic spine. CT/CT angio chest PE protcl [id number] IMPRESSION: 1. Motion artifact through the main pulmonary artery causing mild limitation for evaluation of pulmonary emboli. Beyond the lobar branches no pulmonary emboli identified. There is no enlargement of pulmonary artery or RIGHT heart strain. 2. No pneumonia. Dictated By:Xiomy Brown DOSigned By:Xiomy Brown DOSigned Date/Time:06/21/21 1322DD/ [address] [facility], [place] [address]MHwj ReportSigned Patient: Charisse Tucker #: [id number]: 1985Acct#:[id number]/Sex: 36 / FADM Date: 06/21/21Loc: ERRoom/Bed:Attending Dr: Ordering Provider/Ordering MD: Cristel Laguna Date of Service: 06/21/21 Procedure(s): XR chest 1V portable [id number] Accession Number(s): [id number] Report Number: [id number] WS: [id number] Exam: XR chest 1V portable [id number] Date/Time of Exam: 06/21/2021 10:52 AM Reason For Exam: chest pain Comparison 04/27/2021. Findings: The lungs are clear and fully expanded. Costophrenic angles are sharp. No infiltrates. Bronchovascular relief appears normal. Cardiac silhouette is unremarkable. Bony elements are intact. XR/XR chest 1V portable [id number] IMPRESSION: Unremarkable chest radiograph. Dictated By:Chowdaryigned By:Angelique Sue Date/Time:06/21/21 1123DD/ 1123 Discharge Plan Discharge Patient Disposition: Home Clinical Impression: Chest pain Condition: Stable Prescriptions: New acetaminophen 500 mg tablet 500 mg PO BID PRN (Reason: pain) 10 Days Qty: 20 RF: 0 No Action Medrol (Mauro) 4 mg tablets,dose pack See Rx Instructions .ROUTE .COMPLEX Qty: 21 RF: 0 albuterol sulfate 90 mcg/actuation HFA aerosol inhaler 2 inh INHALATION Q4H PRN (Reason: shortness of breath or wheezing) Qty: 18 RF: 0 ciprofloxacin HCl 500 mg tablet 500 mg PO BID Qty: 14 RF: 0 tramadol 50 mg tablet 50 mg PO Q6H PRN (Reason: pain) Qty: 7 RF: 0 Discharge Orders: Discharge ED (Routine); Ordered 06/21/21 Ordered By: Jim Collins Discharge Diet: Advance as tolerated Discharge Activity: Resume usual activity Patient Instructions: Chest Pain (ED) Activity Restrictions/Additional Instructions: Come back to the emergency room if your chest pain worsens, if any fever chills, nausea vomiting, or any new or concerning complaints. Coding Level of Care Code ED Food Technologist for Ayahg Geovanna
[2021-06-21 11:50] LABS: Troponin(5th) Baseline 6 ng/L (0-10)
[2021-06-21 11:57] LABS: Alanine Aminotransferase 18 U/L (0-33); Albumin Level 4.2 g/dL (3.5-5.2); Alkaline Phosphatase 71 IU/L (35-105); Anion Gap 16.7 (5-19); Aspartate Amino Transferase 14 U/L (0-32); Blood Urea Nitrogen 11 mg/dL (6-20); Calcium 9.3 mg/dL (8.5-10.5); Carbon Dioxide 26 mmol/L (22-29); Chloride 101 mmol/L (98-107); Glomerular Filtration Rate 141.2 mL/min (90-130); Glucose 84 mg/dL (65-115); NT Pro B Type Natriuretic Pept 46 pg/mL (0-125); Osmolality Calculated 289 mOsm/kg (285-295); Potassium 3.7 mmol/L (3.5-5.1); Sodium 140 mmol/L (136-145); Total Bilirubin 0.2 mg/dL (0.15-1.2); Total Protein 7.2 g/dL (6.6-8.7)
--- NOTE | 2021-06-21 12:02 | USCV_ITS ---
Charisse Tucker Age: 36 Gender: F : 1985 Exam Date: 06/21/2021 12:40 Ordering Phys: Jim Collins MD Technologist: Ana María Javed [place] [facility] [place] Indication: CEHST PAIN EVALUATE FOR EF BP: 118 / 92 HR: 67 Rhythm: Sinus Technical Quality: Adequate MEASUREMENTS (Male / Female) Normal Values 2D ECHO LV Diastolic Diameter PLAX 4.5 cm 4.2 - 5.9 / 3.9 - 5.3 cm LV Systolic Diameter PLAX 3.5 cm IVS Diastolic Thickness 1.1 cm 0.6 - 1.0 / 0.6 - 0.9 cm IVS Systolic Thickness 1.3 cm LVPW Diastolic Thickness 1.2 cm 0.6 - 1.0 / 0.6 - 0.9 cm LVPW Systolic Thickness 1.4 cm LVOT Diameter 2.0 cm LV Ejection Fraction 2D Teich 44.0 % LV Ejection Fraction MOD 2C 52.0 % LV Ejection Fraction 2C AL 52.1 % LA Diameter 3.1 cm LA Width 3.1 cm LA Height 4.9 cm RA Width 2.8 cm RA Height 3.6 cm Aorta at Sinotubular Diameter 2.2 cm M-MODE LV Diastolic Diameter MM 5.3 cm 4.2 - 5.9 / 3.9 - 5.3 cm LV Systolic Diameter MM 4.0 cm LV Ejection Fraction MM Teich 47.6 % IVS Diastolic Thickness MM 1.3 cm 0.6 - 1.0 / 0.6 - 0.9 cm IVS Systolic Thickness MM 1.5 cm LVPW Diastolic Thickness MM 1.3 cm 0.6 - 1.0 / 0.6 - 0.9 cm LVPW Systolic Thickness MM 1.4 cm FINDINGS Left Ventricle Limited quality echocardiogram because of poor ultrasonic windows. Grossly normal LV systolic is mildly reduced. Regional wall motion abnormalities can not be assessed because of poor visualization Right Ventricle Right Atrium Left Atrium Mitral Valve Aortic Valve Tricuspid Valve Pulmonic Valve Pericardium Aorta CONCLUSIONS Limited quality echocardiogram because of poor ultrasonic windows. Grossly normal LV systolic is mildly reduced. Regional wall motion abnormalities can not be assessed because of poor visualization Compared to prior echocardiogram from 2019, LV systolic function appears to have improved. Brad Limon MD (Electronically Signed) Final Date: 21 June 2021 20:38 S
[2021-06-21 12:24] LABS: D Dimer 0.81 ug/mIFEU (0-0.59)
--- NOTE | 2021-06-21 12:31 | CT_ITS ---
WS: [id number] CT CHEST ANGIOGRAPHY WITH REFORMATS HISTORY: rule out pe TECHNIQUE: Contiguous axial images are obtained through the chest during arterial injection of intrav enous contrast. Images are reconstructed to evaluate the pulmonary arteries. MIP imaging also reviewe d. All CT scans at [facility] use at least one of these dose optimization techniques: automat ed exposure control; mA and/or kV adjustment per patient size (includes targeted exams where dose is matched to clinical indication); or iterative reconstruction. CONTRAST: Omnipaque 350; 95 mL IV. DLP: 598.85 mGy.cm COMPARISON: None available. Motion artifact through portions of the main pulmonary artery. No large filling defects are evident. Distal to the lobar branches is very good opacification. The variable density within the main pulmona ry artery is probably cardiac motion. No filling defect in the LEFT atrial appendage. Normal size hea rt. Normal aorta. No pericardial or pleural effusions. No pneumonia. Lungs are clear. No adenopathy. Small hiatal hernia. Visualized upper abdominal structures are normal. Mild scoliosis thoracic spine. CT/CT angio chest PE protcl [id number] IMPRESSION: 1. Motion artifact through the main pulmonary artery causing mild limitation f or evaluation of pulmonary emboli. Beyond the lobar branches no pulmonary embol i identified. There is no enlargement of pulmonary artery or RIGHT heart strain . 2. No pneumonia.
[2021-06-21] MEDS: iohexol 350 mg/mL 100 mL Btl IV (13:20)
[2021-06-21 14:52] LABS: Troponin T (5th) Once 6 ng/L (0-10)
--- NOTE | 2021-06-22 10:38 | PC.SOCIAL ---
Addendum entered by Josie Gonzalez 09/19/21 15:43: Patient had a follow up appointment for patient with [facility] - patient did not attend appointment. Addendum entered by Josie Gonzalez 06/30/21 11:10: acting manager called and spoke with patient, gave her the appointment information. Original Note: Talked with Leonarda at Cardiology and discussed referral per Dr Collins for Cardiology and appt scheduled for 07/07/21 at 1:15pm. Tried to reach patient but unable to reach. Left message requesting a call back to update on an appt.
== END 2021-06-21 15:19 | disposition home or self-care (01) ==
PROVIDERS: Physician Assistant; Emergency Provider Emergency Medicine
DX: R07.9 Chest pain, unspecified (principal); F17.200 Nicotine dependence, unspecified, uncomplicated; Z82.49 Family history of ischemic heart disease and other diseases of the circulatory system
CPT/HCPCS: 71045; 71275; 80053; 83880; 84484; 85025; 85378; 93005; 93308; 99283; Q9967

== ENCOUNTER 2024-02-18 16:33 | Emergency (ER) | payer SELFPAY ==
[2024-02-18 16:39] VITALS: BP 138/90; PULSE 85; RESP 17; TEMP 36.5; O2SAT 99; BMI 37.1
--- NOTE | 2024-02-18 16:47 | ECG_ITS ---
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 Measurements Intervals [place] Rate: 99 P: 58 MS: 148 QRS: 64 QRSD: 97 T: 69 QT: 394 QTc: 506 Interpretive Statements SINUS RHYTHM LOW QRS VOLTAGE IN PRECORDIAL LEADS [QRS DEFLECTION < 1.0 mV IN CHEST LEADS] NONSPECIFIC T-WAVE ABNORMALITY Compared to ECG 06/21/2021 11:07:24 Low QRS voltage now present T-wave abnormality now present Prolonged QT interval no longer present Electronically Signed On 02-19-2024 14:45:51 CDT by Jose G Jacobs M.D. [email or web address].Canva/store/[id number] f
--- NOTE | 2024-02-18 16:50 | XRR_ITS ---
PROCEDURE INFORMATION: Exam: XR Chest Exam date and time: 02/18/2024 4:58 PM Age: 38 years old Clinical indication: Pain; Chest pressure; Additional info: Cp TECHNIQUE: Imaging protocol: Radiologic exam of the chest. Views: 1 view. COMPARISON: CT angio chest PE protcl [id number] 06/21/2021 1:06 PM FINDINGS: Lungs: Unremarkable. No consolidation. Pleural spaces: Unremarkable. No pleural effusion. No pneumothorax. Heart/Mediastinum: Unremarkable. No cardiomegaly. Bones/joints: Unremarkable. XR/XR chest 1V portable [id number] IMPRESSION: No acute findings.
--- NOTE | 2024-02-18 17:00 | ED_ITS ---
HPI - Chest Pain 2 General: Chief Complaint: Chest Pain Stated Complaint: chest pain, SOB, tingling hands Time Seen by Provider: 02/18/24 16:54 History of Present Illness: 38-year-old female comes in today for co mplaints of some heaviness in her chest with numbness down both arms. Patient was driving the car while on the way to [place] to drop off her son with his father. Patient reports a history of congestive heart failure secondary to high blood pressure. Patient does take losartan and a diuretic. Patient denies any other chronic medical problems. Patient's prior surgeries include a . Patient does report she continues to have her gallbladder. Patient denies any complaints at this time. Patient reports chest pain is resolved. Review of Systems 2 General: Reports: 10 or more systems reviewed and unremarkable except in HPI and below Card: Reports: chest pain Physical Exam 2 Const: COMMON NORMALS: alert HENMT: COMMON NORMALS: normocephalic HEAD & SCALP: normocephalic THROAT: posterior oropharynx normal Neck/C-Spine: COMMON NORMALS: full ROM Resp: COMMON NORMALS: normal respiratory effort and clear to auscultation bilaterally AUSCULTATION: clear to auscultation bilaterally Cardio: COMMON NORMALS: regular rate and regular rhythm RATE: regular rate RHYTHM: regular rhythm GI: COMMON NORMALS: Soft to palpation and non-tender PALPATION: Yes Soft to palpation Back/Pelvis: COMMON NORMALS: thoracic and lumbar spine normal to inspection Extremity: COMMON NORMALS: normal to inspection and no pedal edema Neuro: SENSORIUM/ORIENTATION: Yes alert Skin: COMMON NORMALS: turgor normal GENERAL SKIN EXAM: turgor normal Course 2 Vital Signs: Vital signs: Vital Signs Temperature 97.7 F 02/18/24 16:39 Pulse Rate 85 02/18/24 16:39 Respiratory Rate 17 02/18/24 16:39 Blood Pressure 138/90 02/18/24 16:39 Pulse Oximetry 99 02/18/24 16:39 Oxygen Delivery Me thod Room Air 02/18/24 16:39 MDM - Chest Pain Medical Decision Making 38-year-old female comes in today for complaints of chest discomfort with numbness and tingling down both arms. Patient appears nontoxic. Patient appears no acute distress. No edema is noted in the extremities. Abdomen soft nontender. Vital signs are normal. Differential diagnosis includes but not limited to anxiety, CHF, ACS, gallbladder disease, GERD. CBC, CMP was unremarkable. Troponin was normal. BNP was at 236. Chest x-ray showed no signs of heart failure. EKG was unremarkable. Reviewed exam with patient with recommendation for treatment and follow-up. Patient was discharged home with a follow-up appointment to case management with cardiology. Patient knows to return for worsening symptoms or new concerns. Lab Data 02/18/24 17:05 02/18/24 17:05 Laboratory Results WBC 8.43 10^3/uL (3.29-11.43) 02/18/24 17:05 RBC 5.00 10^6/uL (3.85-5.65) 02/18/24 17:05 Hgb 13.30 g/dL (11.27-16.99) 02/18/24 17:05 Hct 40.2 % (36-47) 02/18/24 17:05 MCV 80.4 fl (85-98) L 02/18/24 17:05 MCH 26.6 pg (27-33) L 02/18/24 17:05 MCHC 33.1 g/dL (30-55) 02/18/24 17:05 RDW 13.2 % (12.1-15.1) 02/18/24 17:05 Plt Count 280 10^3/cmm (157-399) 02/18/24 17:05 MPV 9.5 fL (7.4-10.4) 02/18/24 17:05 Neut % (Auto) 50.2 % 02/18/24 17:05 Lymph % (Auto) 40.3 % 02/18/24 17:05 [place] % (Auto) 5.6 % 02/18/24 17:05 Eos % (Auto) 2.8 % 02/18/24 17:05 Baso % (Auto) 0.7 % 02/18/24 17:05 Neut # (Auto) 4.23 10^3/uL (1.8-7.7) 02/18/24 17:05 Lymph # (Auto) 3.4 10^3/uL (0.8-4.8) 02/18/24 17:05 [place] # (Auto) 0.5 10^3/uL (0.2-0.9) 02/18/24 17:05 Eos # (Auto) 0.2 10^3/uL (0.0-0.8) 02/18/24 17:05 Baso # (Auto) 0.1 10^3/uL (0.0-0.1) 02/18/24 17:05 Nucleated RBC % (auto) 0 % 02/18/24 17:05 Nucleated RBCs # 0.0 /100WBC 02/18/24 17:05 Sodium 138 mmol/L (136-145) 02/18/24 17:05 Potassium 3.5 mmol/L (3.5-5.1) 02/18/24 17:05 Chloride 105 mmol/L (98-107) 02/18/24 17:05 Carbon Dioxide 25 mmol/L (22-29) 02/18/24 17:05 Anion Gap 11.5 (5-19) 02/18/24 17:05 BUN 14 mg/dL (6-20) 02/18/24 17:05 Creatinine 0.7 mg/dL (0.5-0.9) 02/18/24 17:05 GFR Calculation 94.7 mL/min (90-130) 02/18/24 17:05 Glucose 105 mg/dL (65-115) 02/18/24 17:05 Calculated Osmolality 287 mOsm/kg (285-295) 02/18/24 17:05 Calcium 9.1 mg/dL (8.5-10.5) 02/18/24 17:05 Total Bilirubin 0.2 mg/dL (0.15-1.2) 02/18/24 17:05 AST 14 U/L (0-32) 02/18/24 17:05 ALT 18 U/L (0-33) 02/18/24 17:05 Alkaline Phosphatase 75 U/L (35-105) 02/18/24 17:05 Troponin T Baseline < 6 ng/L (0-10) 02/18/24 17:05 NT-Pro-B Natriuret Pep 236 pg/mL (0-125) H 02/18/24 17:05 Total Protein 7.0 g/dL (6.6-8.7) 02/18/24 17:05 Albumin 4.1 g/dL (3.5-5.2) 02/18/24 17:05 Globulin 2.9 g/dL (1.3-4.6) 02/18/24 17:05 Lipase 32 U/L (13-60) 02/18/24 17:05 HCG, Qual Negative (Negative) 02/18/24 17:05 XR interpretation done by ED provider, pending radiology final review EKG Data EKG 1: I personally reviewed and interpreted this EKG as follows: EKG interpretation date: 02/18/24 EKG interpretation time: 16:35 Prior EKG tracings: not available for review Interpretation: EKG shows a sinus rhythm with a regular rate at [address] elevation or ectopy is noted. No prior exam was available for comparison. ER attending Dr. Geller had reviewed the EKG prior to my visualization. Computer generated interpretation: Sinus rhythm, low QRS voltage in precordial leads, nonspecific T wave abnormality, borderline EKG, unconfirmed report. Discharge Plan Discharge Patient Disposition: Home Clinical Impression: Hx of acute heart failure Chest pain Qualifiers: Chest pain type: unspecified Qualified Code(s): R07.9 - Chest pain, unspecified Condition: Stable Prescriptions: No Action Medrol (Mauro) 4 mg tablets,dose pack See Rx Instructions .ROUTE .COMPLEX Qty: 21 0RF Rx Instructions: orally per package directions albuterol sulfate 90 mcg/actuation HFA aerosol inhaler 2 inh INHALATION Q4H PRN (Reason: shortness of breath or wheezing) Qty: 18 0RF ciprofloxacin HCl 500 mg tablet 500 mg PO BID Qty: 14 0RF tramadol 50 mg tablet 50 mg PO Q6H PRN (Reason: pain) Qty: 7 0RF Discharge Orders: Discharge ED (Routine); Ordered 02/18/24 Ordered By: Ellis Chirinos Discharge Diet: Usual diet Discharge Activity: Increase activity as tolerated Patient Instructions: Chest Pain (ED) Activity Restrictions/Additional Instructions: Follow-up with primary care for further evaluation and treatment. Return to ED for worsening symptoms such as severe shortness of breath, worsening chest pain, or new concerns. Coding Level of Care Code ED [employer] for [facility]
[2024-02-18 17:08] LABS: Basophils # 0.1 10^3/uL (0.0-0.1); Basophils % 0.7 %; Eosinophils # 0.2 10^3/uL (0.0-0.8); Eosinophils % 2.8 %; Hematocrit 40.2 % (36-47); Lymphocytes # 3.4 10^3/uL (0.8-4.8); Lymphocytes % 40.3 %; Mean Corpuscular HGB Conc 33.1 g/dL (30-55); Mean Corpuscular Hemoglobin 26.6 pg (27-33); Mean Corpuscular Volume 80.4 fl (85-98); Mean Platelet Volume 9.5 fL (7.4-10.4); Monocytes # 0.5 10^3/uL (0.2-0.9); Monocytes % 5.6 %; Neutrophils # 4.23 10^3/uL (1.8-7.7); Neutrophils % 50.2 %; Nucleated Red Blood Cells % 0 %; Platelet Count 280 10^3/cmm (157-399); Red Cell Distribution Width 13.2 % (12.1-15.1); White Blood Count 8.43 10^3/uL (3.29-11.43)
[2024-02-18 17:23] LABS: HCG, Serum Qual Negative (Negative)
[2024-02-18 17:27] LABS: Troponin(5th) Baseline < 6 ng/L (0-10)
[2024-02-18 17:36] LABS: Alanine Aminotransferase 18 U/L (0-33); Albumin Level 4.1 g/dL (3.5-5.2); Alkaline Phosphatase 75 U/L (35-105); Anion Gap 11.5 (5-19); Aspartate Amino Transferase 14 U/L (0-32); Blood Urea Nitrogen 14 mg/dL (6-20); Calcium 9.1 mg/dL (8.5-10.5); Carbon Dioxide 25 mmol/L (22-29); Chloride 105 mmol/L (98-107); Globulin 2.9 g/dL (1.3-4.6); Glomerular Filtration Rate 94.7 mL/min (90-130); Glucose 105 mg/dL (65-115); Lipase 32 U/L (13-60); NT Pro B Type Natriuretic Pept 236 pg/mL (0-125); Osmolality Calculated 287 mOsm/kg (285-295); Potassium 3.5 mmol/L (3.5-5.1); Sodium 138 mmol/L (136-145); Total Bilirubin 0.2 mg/dL (0.15-1.2)
[2024-02-18 17:55] VITALS: BP 138/96; PULSE 78; RESP 17; O2SAT 96
--- NOTE | 2024-02-19 07:27 | DCPLANNER ---
messaged cardio for er f/u
== END 2024-02-18 17:56 | disposition home or self-care (01) ==
PROVIDERS: Emergency Medicine; Emergency Provider Nurse Practitioner Family
DX: R07.9 Chest pain, unspecified (principal); I11.0 Hypertensive heart disease with heart failure; I50.9 Heart failure, unspecified
CPT/HCPCS: 71045; 80053; 83690; 83880; 84484; 84703; 85025; 93005; 99285